=== PATIENT | male | born 1990 | race Caucasian/White ===

== ENCOUNTER 2017-06-29 12:42 | Emergency (ER) | payer SELFPAY ==
[2017-06-29 13:12] VITALS: BP 118/80
[2017-06-29 14:15] LABS: Basophils % (Auto) 0.7 % (0.0-1.8); Eosinophils % (Auto) 1.3 % (0.0-4.3); Hematocrit 42.9 % (35.5-45.6); Hemoglobin 14.2 gm/dl (11.8-15.2); Mean Corpuscular HGB Conc 33 % (32-34); Mean Corpuscular Hemoglobin 29 pg (28-32); Mean Corpuscular Volume 87 fl (84-94); Platelet Count 215 K/mm3 (140-440); Red Blood Count 4.93 M/mm3 (3.65-5.03); Red Cell Distribution Width 14.1 % (13.2-15.2); White Blood Count 6.8 K/mm3 (4.5-11.0)
[2017-06-29 14:34] LABS: Anion Gap 14 mmol/L; Blood Urea Nitrogen 10 mg/dL (9-20); Calcium 10.1 mg/dL (8.4-10.2); Carbon Dioxide 31 mmol/L (22-30); Chloride 99.4 mmol/L (98-107); Glucose 85 mg/dL (75-100); Potassium 4.5 mmol/L (3.6-5.0); Sodium 140 mmol/L (137-145)
--- NOTE | 2017-06-30 23:50 | ED Elopement Review ---
ED Pt Elopement review - Results review Lab results: Laboratory Tests 06/29/17 06/29/17 13:57 13:57 WBC 6.8 RBC 4.93 Hgb 14.2 Hct 42.9 MCV 87 MCH 29 MCHC 33 RDW 14.1 Plt Count 215 Lymph % (Auto) 23.3 [place] % (Auto) 9.0 H Eos % (Auto) 1.3 Baso % (Auto) 0.7 Lymph # 1.6 [place]ins # 0.6 Eos # 0.1 Baso # 0.0 Seg Neutrophils % 65.7 Seg Neutrophils # 4.5 Sodium 140 Potassium 4.5 Chloride 99.4 Carbon Dioxide 31 H Anion Gap 14 BUN 10 Creatinine 0.8 Estimated GFR > 60 BUN/Creatinine Ratio 12.50 Glucose 85 Calcium 10.1 Troponin T < 0.010 - Call Back decision Pt Call Back Decision: Pt to F/U with PMD
== END 2017-06-29 18:36 | disposition left against medical advice (07) ==
LOC: ED 12:42
DX: R07.9 Chest pain, unspecified (principal); Z53.21 Procedure and treatment not carried out due to patient leaving prior to being seen by health care provider
CPT/HCPCS: 36415; 80048; 84484; 85025; 93005; 93010

== ENCOUNTER 2018-01-28 09:24 | Emergency (ER) | payer SELFPAY ==
--- NOTE | 2018-01-28 11:46 | Emergency Department Report ---
Abscess Boil HPI - HPI Chief Complaint: Skin/Abscess/Foreign Body Stated Complaint: LUMP LEFT SIDE CHEST Time Seen by Provider: 01/28/18 11:24 Duration: >1 Week (6 months family hx breast CA) Location: Other (left nipple) History: Yes Pain, Yes Purulent Drainage, Yes Previous History, No Fever, No Numbness, No Foreign Body, No Insect Bite Home Medications: Previous Rx's Medication Instructions Recorded Last Taken Type Acetaminophen/Codeine 1 tab PO Q6H PRN #25 tab 08/01/14 Unknown Rx [Acetaminophen-Codeine #3 TAB] Ibuprofen [Motrin] 600 mg PO Q8H PRN #50 tablet 08/01/14 Unknown Rx Ibuprofen 800 mg PO TID #30 tablet 01/28/18 Unknown Rx Sulfamethoxazole/Trimethoprim 1 each PO BID #20 tablet 01/28/18 Unknown Rx [Bactrim DS TAB] Allergies/Adverse Reactions: Allergies Allergy/AdvReac Type Severity Reaction Status Date / Time No Known Allergies Allergy Verified 06/29/17 13:12 ED Review of Systems ROS: Stated complaint: LUMP LEFT SIDE CHEST Other details as noted in HPI Constitutional: denies: chills, fever Eyes: denies: eye pain, eye discharge, vision change ENT: denies: ear pain, throat pain Respiratory: denies: cough, shortness of breath, wheezing Cardiovascular: denies: chest pain, palpitations Endocrine: no symptoms reported Gastrointestinal: denies: abdominal pain, nausea, diarrhea Genitourinary: denies: urgency, dysuria Musculoskeletal: denies: back pain, joint swelling, arthralgia Skin: other (mild left nipper erythema minimal white drainage manually express no fluctuance less than 1 cm no mass no axillary tenderness no fever ). denies : rash, lesions Neurological: denies: headache, weakness, paresthesias Psychiatric: as per HPI Hematological/Lymphatic: denies: easy bleeding, easy bruising ED Past Medical Hx - Past Medical History Previous Medical History?: No - Surgical History Past Surgical History?: Yes Additional Surgical History: t&a - Social History Smoking Status: Current Every Day Smoker Substance Use Type: Alcohol, Marijuana - Medications Home Medications: Home Medications Medication Instructions Recorded Confirmed Last Taken Type Acetaminophen/Codeine 1 tab PO Q6H PRN #25 tab 08/01/14 Unknown Rx [Acetaminophen-Codeine #3 TAB] Ibuprofen [Motrin] 600 mg PO Q8H PRN #50 tablet 08/01/14 Unknown Rx Ibuprofen 800 mg PO TID #30 tablet 01/28/18 Unknown Rx Sulfamethoxazole/Trimethoprim 1 each PO BID #20 tablet 01/28/18 Unknown Rx [Bactrim DS TAB] ED Abscess Boil Physical Exam - Exam General: Vital signs noted. No distress. Alert and acting appropriately. Front/Back of Body, Lg (Color): 1 - left nipple Size: 1 cm (less than 1 cm) Exam: Yes Tenderness, Yes Surrounding Cellulites/Erythema, Yes Normal Neurologic Exam, Yes Normal Circulation, No Fluctuance, No Lymphangitis, No Crepitation, No Heart Murmur ED Course Vital Signs 01/28/18 09:36 Temperature 98.6 F Pulse Rate 74 Respiratory 16 Rate Blood Pressure 123/77 O2 Sat by Pulse 98 Oximetry Critical care attestation.: If time is entered above; I have spent that time in minutes in the direct care of this critically ill patient, excluding procedure time. ED Medical Decision Making - Medical Decision Making this is a mild cellulitis no focal abscess or fluctuance no axillary tenderness no lymph no mass, no fever no chills however given hx will referr to pcp Dr. Acosta on tuesday 2 days from now for follow up and evaluation for breast concern, plan: bactrrim ibuprofen follow up with pcp in 2 days , pt verbalized agreement and understanding with same. ED Disposition Clinical Impression: Breast abscess in male Disposition: DC-01 TO HOME OR SELFCARE Is pt being admited?: No Does the pt Need Aspirin: No Condition: Good Instructions: Breast Abscess Drainage (ED) Additional Instructions: follow up with Dr Carlson in 2 days as scheduled Prescriptions: Ibuprofen 800 mg PO TID #30 tablet Sulfamethoxazole/Trimethoprim [Bactrim DS TAB] 1 each PO BID #20 tablet Referrals: PRIMARY CARE, [Primary Care Provider] - 3-5 Days Forms: Work/School Release Form(ED) Time of Disposition: 11:51
[2018-01-28 12:05] VITALS: BP 120/70
== END 2018-01-28 12:04 | disposition home or self-care (01) ==
LOC: ED 09:24
DX: N61.1 Abscess of the breast and nipple (principal); F17.200 Nicotine dependence, unspecified, uncomplicated; F12.10 Cannabis abuse, uncomplicated
CPT/HCPCS: 99282

== ENCOUNTER 2020-11-07 11:54 | Emergency (ER) | payer BC ==
[2020-11-07 12:00] VITALS: BP 150/84
--- NOTE | 2020-11-07 12:25 | Emergency Department Report ---
Chief Complaint: Urogenital-Male Stated Complaint: URINARY BURNING - HPI History of Present Illness: 30-year-old -[place] male presents to the emergency room for dysuria x3 days. Worse with urination. Denies any fever chills no nausea no vomiting no abdominal pain. - Exam Vital Signs: Vital Signs 11/07/20 11:59 Temperature 98.4 F Pulse Rate 100 H Respiratory 16 Rate Blood Pressure 150/84 O2 Sat by Pulse 99 Oximetry Physical Exam: Alert and oriented x3 no acute distress nontoxic in appearance No accessory muscles use nonlabored breathing bilateral lymphadenopathy of the groin area. Penis is circumcised with discharge from the penile orifice. No testicular tenderness. Ambulatory without difficulties MSE screening note: Focused history and physical exam performed. Due to findings the following was ordered: 30-year-old -[place] male presents to the emergency room for dysuria x3 days. Worse with urination. Denies any fever chills no nausea no vomiting no abdominal pain. Recommend to follow-up at the health department for full STD panel checkup including syphilis HIV herpes. ED Disposition for MSE Disposition: MED SCREENING EXAM-LEFT Is pt being admited?: No Does the pt Need Aspirin: No Condition: Stable Additional Instructions: Follow-up at the health department urgent care or [facility] for evaluation of STD.Recommend to follow-up at the health department for full STD panel checkup including syphilis HIV herpes. Referrals: [facility] [Outside] - 3-5 Days [facility] [Provider Group] - 3-5 Days
== END 2020-11-07 12:29 | disposition left against medical advice (07) ==
LOC: ED 11:54
DX: R30.0 Dysuria (principal); Z53.21 Procedure and treatment not carried out due to patient leaving prior to being seen by health care provider

== ENCOUNTER 2021-02-25 11:04 | Emergency (ER) | payer BC ==
[2021-02-25 11:17] VITALS: BP 130/83
--- NOTE | 2021-02-25 11:25 | Emergency Department Report ---
ED General Adult HPI - General Chief complaint: Upper Respiratory Infection Stated complaint: HEAD COLD Time Seen by Provider: 02/25/21 11:21 Source: patient Mode of arrival: Ambulatory Limitations: No Limitations - History of Present Illness Initial comments: 30-year-old male patient presents to the emergency department with complaints of nasal congestion and sinus pressure for 2 days. No known sick contacts. No current steroid or antibiotic use. No recent travel. No medications prior to arrival. Denies fever, chills, sore throat, cough, shortness of breath, wheezing, neck stiffness, rash, vomiting, diarrhea. Denies all other complaints at this time. - Related Data Previous Rx's Medication Instructions Recorded Last Taken Type Acetaminophen/Codeine 1 tab PO Q6H PRN #25 tab 08/01/14 Unknown Rx [Acetaminophen-Codeine #3 TAB] Ibuprofen [Motrin] 600 mg PO Q8H PRN #50 tablet 08/01/14 Unknown Rx Ibuprofen 800 mg PO TID #30 tablet 01/28/18 Unknown Rx Sulfamethoxazole/Trimethoprim 1 each PO BID #20 tablet 01/28/18 Unknown Rx [Bactrim DS TAB] Fluticasone [Flonase] 1 spray NS QDAY #1 bottle 02/25/21 Unknown Rx Allergies Allergy/AdvReac Type Severity Reaction Status Date / Time No Known Allergies Allergy Verified 02/25/21 11:17 ED Review of Systems ROS: Stated complaint: HEAD COLD Other details as noted in HPI Other: GENERAL: Negative for fever, chills, weight change, anorexia, fatigue. ENT: Positive for sinus pressure and congestion. CARDIOVASCULAR: Negative for chest pain, palpitations, lower extremity swelling. PULMONARY: Negative for cough, dyspnea, wheezing, orthopnea, cyanosis. GASTROINTESTINAL: Negative for abdominal pain, nausea, vomiting, diarrhea, constipation. MUSCULOSKELETAL: Negative for joint pain, joint swelling, myalgias, back pain, neck pain. NEUROLOGICAL: Negative for headache, seizure, syncope, paresthesias, weakness. INTEGUMENTARY: Negative for erythema, rash, diaphoresis, laceration, ecchymosis. HEMATOLOGICAL: Negative for hemoptysis, hematemesis, hematochezia, hematuria. PSYCHIATRIC: Negative for hallucinations, suicidal ideation, homicidal ideation, anxiety, depression. ED Past Medical Hx - Past Medical History Previous Medical History?: No - Surgical History Additional Surgical History: t&a - Social History Smoking Status: Current Every Day Smoker Substance Use Type: None - Medications Home Medications: Home Medications Medication Instructions Recorded Confirmed Last Taken Type Acetaminophen/Codeine 1 tab PO Q6H PRN #25 tab 08/01/14 Unknown Rx [Acetaminophen-Codeine #3 TAB] Ibuprofen [Motrin] 600 mg PO Q8H PRN #50 tablet 08/01/14 Unknown Rx Ibuprofen 800 mg PO TID #30 tablet 01/28/18 Unknown Rx Sulfamethoxazole/Trimethoprim 1 each PO BID #20 tablet 01/28/18 Unknown Rx [Bactrim DS TAB] Fluticasone [Flonase] 1 spray NS QDAY #1 bottle 02/25/21 Unknown Rx ED Physical Exam - General Limitations: No Limitations - Other Other exam information: General: Awake, appropriately interactive, no acute distress. HEENT: Nasal congestion present. Normal otoscopic exam. Normal pharyngeal exam. No sinus tenderness. Neck: Supple. Full range of motion intact. Cardiovascular: Normal peripheral perfusion. Pulmonary: No respiratory distress. Patient is speaking normally without use of accessory muscles. Skin: No apparent rashes or lesions. Neurological: No facial asymmetry. Speech is clear. Follows commands. Patient is alert and oriented. Musculoskeletal: Moves all four extremities spontaneously with normal range of motion. Psych: Cooperative. Appropriate mood and affect. ED Course Vital Signs 02/25/21 11:14 Temperature 98.9 F Pulse Rate 76 Respiratory 14 Rate Blood Pressure 130/83 O2 Sat by Pulse 100 Oximetry ED Medical Decision Making - Medical Decision Making Differential diagnosis include but not limited to: allergic rhinitis, sinusitis, pharyngitis Patient presents to the emergency department with complaints of nasal congestion and sinus pressure for 2 days. He is afebrile, hemodynamically stable, well- hydrated, no respiratory distress. Exam significant for nasal congestion. No clinical indication for further diagnostic work-up on an emergent basis at this time. Patient will be discharged home with appropriate symptomatic treatment and referred to primary care provider for close outpatient follow-up. Patient expressed understanding and is agreeable to plan of care. Disease transmission precautions discussed. Strict return precautions provided. History, exam, diagnostic testing, and current condition do not suggest worrisome pathology to warrant further testing, continued ED treatment, admission, or surgical evaluation at this point. Given the low probability of a significant medical illness, it would be more likely to result in harm than benefit to perform further testing at this stage. Discussed findings, presumptive diagnosis, need for follow-up and specific signs/symptoms that should prompt immediate return to the emergency department. Instructions were explained in detail to the patient in addition to giving written discharge information. Patient expressed understanding and was given the opportunity to ask questions, all of which were satisfactorily answered prior to discharge home. Critical care attestation.: If time is entered above; I have spent that time in minutes in the direct care of this critically ill patient, excluding procedure time. ED Disposition Clinical Impression: Nasopharyngitis Disposition: DC-01 TO HOME OR SELFCARE Is pt being admited?: No Does the pt Need Aspirin: No Condition: Stable Instructions: Postnasal Drip Additional Instructions: Use Flonase as directed. Use [id number] sinus remedies as directed. Exposure to warm humidified air may relieve congestion. Rest. Drink plenty of fluids. Wash hands frequently to prevent disease transmission. Do not share food or drinks with others. Follow-up with primary care provider this week. Call today to schedule an appointment. Return to the emergency department immediately for new or worsening symptoms. Prescriptions: Fluticasone [Flonase] 1 spray NS QDAY #1 bottle Referrals: [facility] [Outside] - 3-5 Days Forms: Work/School Release Form(ED) Time of Disposition: 11:26
== END 2021-02-25 11:51 | disposition home or self-care (01) ==
LOC: ED 11:04
DX: J00 Acute nasopharyngitis [common cold] (principal); F17.200 Nicotine dependence, unspecified, uncomplicated; Z98.890 Other specified postprocedural states; Z79.1 Long term (current) use of non-steroidal anti-inflammatories (NSAID); Z79.899 Other long term (current) drug therapy
CPT/HCPCS: 99282

== ENCOUNTER 2021-08-02 02:32 | Emergency (ER) | payer BC ==
[2021-08-02] MEDS ORDERED: ONDANSETRON 4 MG ODT TAB PO ONE (02:57)
[2021-08-02] MEDS ORDERED: KETOROLAC 30 MG/1 ML INJ IV ONE (02:57)
[2021-08-02 03:58] LABS: Alanine Aminotransferase 12 units/L (7-56); Albumin 4.2 g/dL (3.9-5); BUN/Creatinine Ratio 16; Basophils % (Auto) 0.5 % (0.0-1.8); Blood Urea Nitrogen 16 mg/dL (9-20); Calcium 9.8 mg/dL (8.4-10.2); Eosinophils # (Auto) 0.1 K/mm3 (0.0-0.4); Eosinophils % (Auto) 1.1 % (0.0-4.3); Hemoglobin 14.1 gm/dl (11.8-15.2); Hemolysis Index 11; Lymphocytes # (Auto) 1.9 K/mm3 (1.2-5.4); Lymphocytes % (Auto) 20.4 % (13.4-35.0); Monocytes # (Auto) 0.9 K/mm3 (0.0-0.8); Monocytes % (Auto) 9.7 % (0.0-7.3)
--- NOTE | 2021-08-02 04:00 | XRay Report ---
CHEST 2 VIEWS INDICATION / CLINICAL INFORMATION: rib pain. COMPARISON: None available. FINDINGS: SUPPORT DEVICES: None. HEART / MEDIASTINUM: No significant abnormality. LUNGS / PLEURA: No significant pulmonary or pleural abnormality. No pneumothorax. ADDITIONAL FINDINGS: No significant additional findings. IMPRESSION: 1. No acute findings. Signer Name: Josh Viera MD Signed: 08/02/2021 3:55 AM Workstation Name: [id number]
[2021-08-02 04:15] LABS: Bilirubin,Urine NEG (Negative); Blood,Urine NEG (Negative); Color,Urine Yellow (Yellow); Mucus,Urine FEW /HPF; Protein,Urine <15 mg/dL mg/dL (Negative)
[2021-08-02 04:21] LABS: Hematocrit 40.5 % (35.5-45.6); Mean Corpuscular HGB Conc 35 % (32-34); Mean Corpuscular Volume 86 fl (84-94); Platelet Count 217 K/mm3 (140-440); Red Blood Count 4.72 M/mm3 (3.65-5.03); Red Cell Distribution Width 13.3 % (13.2-15.2)
--- NOTE | 2021-08-02 05:01 | Cat Scan Report ---
CT ABDOMEN AND PELVIS WITHOUT CONTRAST INDICATION: Left flank pain. TECHNIQUE: Axial CT images were obtained through the abdomen and pelvis without IV contrast. All CT scans at [facility] are performed using CT dose reduction for ALARA by means of automated exposure control. COMPARISON: None available. FINDINGS: LOWER CHEST: Left lower lobe focal consolidation LIVER: No significant abnormality. GALLBLADDER: No significant abnormality. BILE DUCTS: No significant abnormality. PANCREAS: No significant abnormality. SPLEEN: No significant abnormality. ADRENALS: No significant abnormality. RIGHT KIDNEY and URETER: Tiny punctate 1 mm right intrarenal stone. No ureteral stone or hydronephros is LEFT KIDNEY and URETER: No significant abnormality. STOMACH and SMALL BOWEL: No significant abnormality. COLON: No significant abnormality. APPENDIX: Normal PERITONEUM: No free fluid. No free air. No fluid collection. LYMPH NODES: No significant adenopathy. AORTA and ARTERIES: No significant abnormality. IVC and VEINS: No significant abnormality. URINARY BLADDER: No significant abnormality. REPRODUCTIVE ORGANS: No significant abnormality. ADDITIONAL FINDINGS: None. SKELETAL SYSTEM: No significant abnormality. IMPRESSION: 1. Left lower lobe bronchopneumonia 2. Punctate 1 mm nonobstructing right intrarenal stone. No ureteral stone or hydronephrosis Signer Name: Josh Viera MD Signed: 08/02/2021 4:57 AM Workstation Name: [id number]
[2021-08-02] MEDS ORDERED: AZITHROMYCIN 250 MG TAB PO ONE (05:08)
[2021-08-02] MEDS ORDERED: cefTRIAXone/NS 1 GM/50 ML 1 GM/50 ML BAG IV ONE (05:08)
--- NOTE | 2021-08-02 05:46 | Emergency Department Report ---
ED General Adult HPI - General Chief complaint: Skin/Abscess/Foreign Body Stated complaint: CYST ON RIGHT BREAST/PAINFUL PUI?: No Source: patient Mode of arrival: Ambulatory Limitations: No Limitations - History of Present Illness Initial comments: Patient is a 30-year-old -[place] male with no past medical history presents to the ED with complaint of acute onset persistent left flank and left lateral chest wall and rib pain for the last 1 week, worse in the last 2 days. Patient states that the pain is worse with movement or palpation of the left flank. Patient denies nausea, vomiting, dizziness, syncope, chest pain or shortness of breath, fever, chills, dysuria, urinary frequency and urgency, penile discharge, hematuria or testicular pain, diarrhea, fall or traumatic injury and heavy lifting. MD Complaint: left flank and left rib pain -: Sudden, week(s) (1) Location: chest (left lateral), abdomen (left flank) Radiation: non-radiation Severity scale (0 -10): 10 Quality: aching, sharp Consistency: constant Improves with: none Worsens with: movement Associated Symptoms: denies other symptoms, cough. denies: confusion, chest pain, diaphoresis, fever/chills, headaches, loss of appetite, malaise, nausea/vomiting, rash, seizure, shortness of breath, syncope, weakness Treatments Prior to Arrival: none - Related Data Previous Rx's Medication Instructions Recorded Last Taken Type Acetaminophen/Codeine 1 tab PO Q6H PRN #25 tab 08/01/14 Unknown Rx [Acetaminophen-Codeine #3 TAB] Ibuprofen [Motrin] 600 mg PO Q8H PRN #50 tablet 08/01/14 Unknown Rx Ibuprofen 800 mg PO TID #30 tablet 01/28/18 Unknown Rx Sulfamethoxazole/Trimethoprim 1 each PO BID #20 tablet 01/28/18 Unknown Rx [Bactrim DS TAB] Fluticasone [Flonase] 1 spray NS QDAY #1 bottle 02/25/21 Unknown Rx Baclofen 20 mg PO Q12H PRN #20 tablet 08/02/21 Unknown Rx Ibuprofen [Motrin] 800 mg PO Q8HR PRN #30 tablet 08/02/21 Unknown Rx Tamsulosin [Flomax] 0.4 mg PO QDAY #10 cap 08/02/21 Unknown Rx levoFLOXacin [Levaquin] 750 mg PO QDAY #7 tablet 08/02/21 Unknown Rx methylPREDNISolone [Medrol 4MG 4 mg PO DAILY #21 tab.ds.pk 08/02/21 Unknown Rx DOSEPAK (21 tabs)] Allergies Allergy/AdvReac Type Severity Reaction Status Date / Time No Known Allergies Allergy Verified 08/02/21 02:45 ED Review of Systems ROS: Stated complaint: CYST ON RIGHT BREAST/PAINFUL Other details as noted in HPI Constitutional: denies: chills, fever Eyes: denies: eye pain, eye discharge, vision change ENT: denies: ear pain, throat pain Respiratory: denies: cough, shortness of breath, wheezing Cardiovascular: other (Left lateral rib pain). denies: chest pain, palpitations Endocrine: no symptoms reported Gastrointestinal: abdominal pain (Left flank pain). denies: nausea, vomiting, diarrhea Genitourinary: denies: urgency, dysuria Musculoskeletal: back pain (Left mid posterior thoracic pain). denies: joint swelling, arthralgia Skin: denies: rash, lesions Neurological: denies: headache, weakness, paresthesias Psychiatric: denies: anxiety, depression Hematological/Lymphatic: denies: easy bleeding, easy bruising ED Past Medical Hx - Past Medical History Previous Medical History?: No - Surgical History Additional Surgical History: t&a - Social History Smoking Status: Former Smoker - Medications Home Medications: Home Medications Medication Instructions Recorded Confirmed Last Taken Type Acetaminophen/Codeine 1 tab PO Q6H PRN #25 tab 08/01/14 Unknown Rx [Acetaminophen-Codeine #3 TAB] Ibuprofen [Motrin] 600 mg PO Q8H PRN #50 tablet 08/01/14 Unknown Rx Ibuprofen 800 mg PO TID #30 tablet 01/28/18 Unknown Rx Sulfamethoxazole/Trimethoprim 1 each PO BID #20 tablet 01/28/18 Unknown Rx [Bactrim DS TAB] Fluticasone [Flonase] 1 spray NS QDAY #1 bottle 02/25/21 Unknown Rx Baclofen 20 mg PO Q12H PRN #20 tablet 08/02/21 Unknown Rx Ibuprofen [Motrin] 800 mg PO Q8HR PRN #30 tablet 08/02/21 Unknown Rx Tamsulosin [Flomax] 0.4 mg PO QDAY #10 cap 08/02/21 Unknown Rx levoFLOXacin [Levaquin] 750 mg PO QDAY #7 tablet 08/02/21 Unknown Rx methylPREDNISolone [Medrol 4MG 4 mg PO DAILY #21 tab.ds.pk 08/02/21 Unknown Rx DOSEPAK (21 tabs)] ED Physical Exam - General Limitations: No Limitations General appearance: alert, in no apparent distress - Head Head exam: Present: atraumatic, normocephalic, normal inspection - Eye Eye exam: Present: normal appearance, PERRL, EOMI Pupils: Present: normal accommodation - ENT ENT exam: Present: normal exam, normal orophraynx, mucous membranes moist, TM's normal bilaterally, normal external ear exam - Neck Neck exam: Present: normal inspection, full ROM. Absent: tenderness - Respiratory Respiratory exam: Present: normal lung sounds bilaterally, chest wall tenderness (Palpable left lateral chest wall and rib tenderness). Absent: respiratory distress, wheezes, rales, stridor, accessory muscle use, decreased breath sounds - Cardiovascular Cardiovascular Exam: Present: regular rate, normal rhythm, normal heart sounds. Absent: systolic murmur, diastolic murmur, rubs, gallop - GI/Abdominal GI/Abdominal exam: Present: soft, tenderness (Palpable left flank tenderness), normal bowel sounds. Absent: guarding, rebound, hyperactive bowel sounds, hypoactive bowel sounds, organomegaly - Extremities Exam Extremities exam: Present: normal inspection, full ROM, normal capillary refill - Back Exam Back exam: Present: normal inspection, full ROM, tenderness (Palpable left-sided mid posterior thoracic paraspinal musculoskeletal tenderness), CVA tenderness (L), muscle spasm, paraspinal tenderness. Absent: CVA tenderness (R), vertebral tenderness - Neurological Exam Neurological exam: Present: alert, oriented X3, CN II-XII intact, normal gait, reflexes normal - Psychiatric Psychiatric exam: Present: normal affect, normal mood - Skin Skin exam: Present: warm, dry, intact, normal color. Absent: rash ED Course Vital Signs 08/02/21 08/02/21 02:37 04:47 Temperature 98.5 F Pulse Rate 72 Respiratory 18 18 Rate Blood Pressure 118/80 O2 Sat by Pulse 99 Oximetry ED Medical Decision Making - Lab Data Result diagrams: 08/02/21 03:21 08/02/21 03:21 - Radiology Data Radiology results: report reviewed, image reviewed [facility] [address] [place] [address] XRay Report Signed Patient: ROSE CHANEL MR#: [id number] : 1990 Acct:[id number] Age/Sex: 30 / M ADM Date: 08/02/21 Loc: ED Attending Dr: Ordering Physician: MINDY YBARRA Date of Service: 08/02/21 Procedure(s): XR chest routine 2V Accession Number(s): [id number] cc: MINDY YBARRA Fluoro Time In Minutes: CHEST 2 VIEWS INDICATION / CLINICAL INFORMATION: rib pain. COMPARISON: None available. FINDINGS: SUPPORT DEVICES: None. HEART / MEDIASTINUM: No significant abnormality. LUNGS / PLEURA: No significant pulmonary or pleural abnormality. No pneumothorax. ADDITIONAL FINDINGS: No significant additional findings. IMPRESSION: 1. No acute findings. Signer Name: Josh Viera MD Signed: 08/02/2021 3:55 AM Workstation Name: [id number] Transcribed By: TL Dictated By: Josh Viera MD Electronically Authenticated By: Josh Viera MD Signed Date/Time: 08/02/21354 DD/ 4 TD/TT: [facility] [address] [place] [address] Cat Scan Report Signed Patient: ROSE CHANEL MR#: [id number] : 1990 Acct:[id number] Age/Sex: 30 / M ADM Date: 08/02/21 Loc: ED Attending Dr: Ordering Physician: MINDY YBARRA Date of Service: 08/02/21 Procedure(s): CT abdomen pelvis wo con Accession Number(s): [id number] cc: MINDY YBARRA CT ABDOMEN AND PELVIS WITHOUT CONTRAST INDICATION: Left flank pain. TECHNIQUE: Axial CT images were obtained through the abdomen and pelvis without IV contrast. All CT scans at this location are performed using CT dose reduction for ALARA by means of automated exposure contr ol. COMPARISON: None available. FINDINGS: LOWER CHEST: Left lower lobe focal consolidation LIVER: No significant abnormality. GALLBLADDER: No significant abnormality. BILE DUCTS: No significant abnormality. PANCREAS: No significant abnormality. SPLEEN: No significant abnormality. ADRENALS: No significant abnormality. RIGHT KIDNEY and URETER: Tiny punctate 1 mm right intrarenal stone. No ureteral stone or hydronephrosis LEFT KIDNEY and URETER: No significant abnormality. STOMACH and SMALL BOWEL: No significant abnormality. COLON: No significant abnormality. APPENDIX: Normal PERITONEUM: No free fluid. No free air. No fluid collection. LYMPH NODES: No significant adenopathy. AORTA and ARTERIES: No significant abnormality. IVC and VEINS: No significant abnormality. URINARY BLADDER: No significant abnormality. REPRODUCTIVE ORGANS: No significant abnormality. ADDITIONAL FINDINGS: None. SKELETAL SYSTEM: No significant abnormality. IMPRESSION: 1. Left lower lobe bronchopneumonia 2. Punctate 1 mm nonobstructing right intrarenal stone. No ureteral stone or hydronephrosis Signer Name: Josh Viera MD Signed: 08/02/2021 4:57 AM Workstation Name: [id number] Transcribed By: TL Dictated By: Josh Viera MD Electronically Authenticated By: Josh Viera MD Signed Date/Time: 08/02/21 0457 - Medical Decision Making This is a 30-year-old -[place] male with no past medical history prese nts to the ED with complaint of acute onset persistent left flank and left lateral chest wall and rib pain for the last 1 week, worse in the last 2 days. Patient states that the pain is worse with movement or palpation of the left flank. In the ED, patient is alert and oriented x3 and is not in any distress. Patient is hemodynamically stable. Lab test results were reviewed and are all nonactionable. Patient was treated for pain in the ED. On reevaluation, patient's pain is well controlled medication. The abdomen pelvis CT scan without contrast showed left lower lobe bronchopneumonia. It also showed punctate 1 mm nonobstructing right intrarenal stone. No ureteral stone or hydronephrosis observed. Chest x-ray showed no acute cardiopulmonary abnormalities or pneumonitis. Patient was therefore treated in the ED empirically for suspected left lower lobe bronchopneumonia with Rocephin 1 g IV x1 and azithromycin 500 mg p.o. x1. Patient was therefore discharged home on antibiotics and pain medications. Patient is advised to follow-up with his primary care physician in 7 to 10 days for reevaluation or return to the ED immediately if symptoms get worse. - Differential Diagnosis Pneumonia; kidney stone; muscle spasm; UTI; muscle strain Critical care attestation.: If time is entered above; I have spent that time in minutes in the direct care of this critically ill patient, excluding procedure time. ED Disposition Clinical Impression: Community acquired pneumonia of left lower lobe of lung, Acute left flank pain, Right kidney stone Muscle strain of chest wall Qualifiers: Encounter type: initial encounter Qualified Code(s): S29.011A - Strain of muscle and tendon of front wall of thorax, initial encounter Disposition: 01 HOME / SELF CARE / HOMELESS Is pt being admited?: No Does the pt Need Aspirin: No Condition: Stable Instructions: Bacterial Pneumonia (ED), Muscle Strain, [id number], Community- Acquired Pneumonia, Adult, [id number], Flank Pain, Adult, [id number] Additional Instructions: All lab test results were reviewed and are all nonactionable. Chest x-ray showed no acute cardiopulmonary abnormalities or pneumonitis. Abdomen pelvis CT scan without contrast showed left lower lobe bronchopneumonia and a 1 mm punctate nonobstructing right sided intrarenal kidney stone. Therefore take medications as advised, drink plenty of fluids and follow-up with your primary care physician in 7 to 10 days for reevaluation. Return to the ED immediately if symptoms get worse. Prescriptions: Baclofen 20 mg PO Q12H PRN #20 tablet PRN Reason: Muscle Spasm Tamsulosin [Flomax] 0.4 mg PO QDAY #10 cap levoFLOXacin [Levaquin] 750 mg PO QDAY #7 tablet methylPREDNISolone [Medrol 4MG DOSEPAK (21 tabs)] 4 mg PO DAILY #21 tab.ds.pk Ibuprofen [Motrin] 800 mg PO Q8HR PRN #30 tablet PRN Reason: Pain , Severe (7-10) Referrals: [facility] [Provider Group] - 3-5 Days Forms: Work/School Release Form(ED) Time of Disposition: 05:51 Print Language: LUX[place]
[2021-08-02 06:39] VITALS: BP 112/79
== END 2021-08-02 06:39 | disposition home or self-care (01) ==
LOC: ED 02:32
DX: S29.011A Strain of muscle and tendon of front wall of thorax, initial encounter (principal); J18.8 Other pneumonia, unspecified organism; R10.9 Unspecified abdominal pain; N20.0 Calculus of kidney; Z98.890 Other specified postprocedural states; Z87.891 Personal history of nicotine dependence; X58.XXXA Exposure to other specified factors, initial encounter; Y93.89 Activity, other specified; Y92.89 Other specified places as the place of occurrence of the external cause; Y99.8 Other external cause status
CPT/HCPCS: 36415; 71046; 74176; 80053; 81001; 84484; 85025; 96365; 96375; 99285; J0696; J1885; Q0162